=== PATIENT | female | born 2000 | race Caucasian/White ===

== ENCOUNTER 2022-06-17 14:58 | Emergency (ER) | payer OTHER ==
[~2022-06-17] VITALS: Wt 72.6 kg
[2022-06-17] MEDS ORDERED: IBU800 M2 PO (15:25)
[2022-06-17] MEDS ORDERED: CLINDAMYCIN HC300 MG PO (15:25)
== END 2022-06-17 15:38 | disposition home or self-care (01) ==
LOC: ED 14:58
DX: K02.9 Dental caries, unspecified (principal); Z88.8 Allergy status to other drugs, medicaments and biological substances

== ENCOUNTER 2024-05-04 05:59 | Emergency (ER) | payer SELFPAY ==
[~2024-05-04] VITALS: Ht 170.1 cm; Wt 72.6 kg
[~2024-05-04 05:59] MED LIST: CLINDAMYCIN HC300 MG PO; IBU800 M2 PO
[2024-05-04] MEDS ORDERED: SUBOXONE 8 MG-1 EACH BC (06:48)
[2024-05-04] MEDS ORDERED: fentaNYL CITRATE 100 MCG/2 ML VIAL IV ONE (06:50)
[2024-05-04] MEDS ORDERED: HYDROmorphONE Hydrochloride 1 MG/ML SYR IV ONE (08:00)
== END 2024-05-04 09:07 | disposition short-term general hospital (02) ==
LOC: ED 05:59 → EDSEX 06:00 → ED 09:07
DX: S82.391A Other fracture of lower end of right tibia, initial encounter for closed fracture (principal); S82.831A Other fracture of upper and lower end of right fibula, initial encounter for closed fracture; Z91.040 Latex allergy status; W00.0XXA Fall on same level due to ice and snow, initial encounter; Y93.89 Activity, other specified; Y92.89 Other specified places as the place of occurrence of the external cause; Y99.8 Other external cause status

== ENCOUNTER 2024-10-31 08:23 | Emergency (ER) | payer SELFPAY ==
[~2024-10-31] VITALS: Ht 172.7 cm; Wt 70.3 kg
[~2024-10-31 08:23] MED LIST changes: +SUBOXONE 8 MG-1 EACH BC
[2024-10-31] MEDS ORDERED: SUBLOCADE300 MG/1.5 SQ (08:31)
[2024-10-31] MEDS ORDERED: SODIUM CHLORIDE 0.9% 1,000 ML IV ONE (08:50)
[2024-10-31] MEDS ORDERED: diphenhydrAMINE hydrochloride 50 MG/ML VIAL IV ONE (08:50)
[2024-10-31] MEDS ORDERED: Metoclopramide Hydrochloride 10 MG/2 ML VIAL IV ONE (08:50)
[2024-10-31 09:03] LABS: BASO # 0.0 10*3/uL (0.0-0.1); BASO % 0.3 % (0.0-1.0); EOS # 0.1 10*3/uL (0.0-0.4); EOS % 1.0 % (1.0-4.0); MEAN CELL VOLUME 84.2 fl (80.0-94.0); MEAN CORPUSCULAR HGB 28.9 pg (27.0-31.0); MEAN PLATELET VOLUME 9.1 fl (9.6-12.3); MONO # 1.0 10*3/uL (0.1-1.0); MONO % 8.6 % (3.0-9.0); NEUT # 8.0 10*3/uL (2.3-7.9); NEUT % 71.3 % (47.0-73.0); NUCLEATED RED BLOOD CELL 0.0 % (0.0-0.0); NUCLEATED RED BLOOD CELL 0.0 10*3/uL (0.0-0.0); PLATELET COUNT AUTOMATED 311 10*3/uL (130-400); RED CELL DISTRI WIDTH 12.7 % (0-14.5)
[2024-10-31 09:24] LABS: BUN 40 mg/dl (9-23); SGPT/ALT 15 U/L (5-49)
[2024-10-31] MEDS ORDERED: Midazolam Hydrochloride 2 MG/2 ML VIAL IV ONE ×2 (09:25→09:30)
[2024-10-31] MEDS ORDERED: Ondansetron4 MG PO (11:11)
[2024-10-31] MEDS ORDERED: MAGNESIUM CITRATE 296 ML BOT PO ONE (11:15)
== END 2024-10-31 11:25 | disposition home or self-care (01) ==
LOC: ED 08:23
PROVIDERS: Internal Medicine
DX: E86.0 Dehydration (principal); K59.00 Constipation, unspecified; Z79.899 Other long term (current) drug therapy